=== PATIENT | male | born 1995 | race Caucasian/White ===

== ENCOUNTER 2021-04-21 15:21 | Emergency (ER) | payer OTHER, SELFPAY ==
[2021-04-21 15:25] VITALS: BP 130/76; PULSE 59; RESP 18; TEMP 36.3; O2SAT 98; BMI 21.2
--- NOTE | 2021-04-21 15:41 | ED_ITS ---
HPI - Extremity Injury (Lower) General Chief Complaint: Extremity Injury, Lower Stated Complaint: Knee injury at work Time Seen by Provider: 04/21/21 15:31 Source: patient Mode of arrival: ambulatory Limitations: no limitations History of Present Illness HPI Narrative: 25 yo male with history of chronic low back pain and on/off knee pain presents to the ER from work with ongoing left lateral knee pain for the last 1 week. He works as an [employer] person and has been working extra hours this week and has been on his feet more. He denies known injury or trauma. No swelling. He has pain with ambulation and palpation to the lateral aspect of his knee. No erythema, warmth, swelling or fevers. No calf pain. No SOB or chest pain. He used to wear a knee brace to work but it made his knee swollen. MD complaint: knee injury Onset (ago): unknown Type of Injury: unknown Place: work Severity: moderate Relieving factors: immobilization and rest Exacerbating factors: weight bearing Associated symptoms: able to partially bear weight Other symptoms: none Related Data Previous Rx's Medication Instructions Recorded ibuprofen 600 mg PO Q8H PRN #10 tab 04/21/21 prednisone 40 mg PO DAILY #10 tab 04/21/21 Allergies Allergy/AdvReac Type Severity Reaction Status Date / Time No Known Allergies Allergy Verified 04/21/21 15:24 Review of Systems Review of Systems: Constitutional: No Fever, No Chills Gastrointestinal: No Nausea, No Vomiting Musculoskeletal: + joint pain, No Myalgias Skin: No Skin Lesions, No rash Neuro: No Weakness, No Numbness Heme/Lymph: No Bruising PMFSH Past Medical History Attestation statement: The following information was validated with the patient. Medical History (Updated 04/21/21 @ 15:42 by LASHAY Miranda) No active medical problems Social History Social History Advance Directives: No Advance Directives Information Provided: No Physical Exam Vital Signs: Vital Signs: Last Vital Signs Temp 97.4 F 04/21/21 15:25 Pulse 59 04/21/21 15:25 Resp 18 04/21/21 15:25 BP 130/76 04/21/21 15:25 Pulse Ox 98 04/21/21 15:25 Body Mass Index 21.2 Appearance: Alert. Oriented X3. No acute distress. HEENT: normal inspection CVS: Normal heart rate and rhythm. Pulses normal. Respiratory: No respiratory distress. Skin: Skin warm and dry. Normal skin color. Normal skin turgor. No rashes. Extremities: bilateral knees are normal to inspection. left knee with mild tenderness to the lower lateral aspect in the expected location of the ileotibial insertion site. normal ROM. no palpable effusion. no erythema, warmth or ecchymosis. NV Intact distally. Neuro: Oriented X 3. No motor deficit. No sensory deficit. ambulates with slight limp Course Course Course Narrative: 25 y/o male presenting with left lateral knee pain after excessive walking. No direct trauma to suspect bony injury. No role for x-ray at this time. Exam and clinical presentation are consistent with tendonitis and overuse injury. He was counseled on management and recommended following up with Orthopedics for further management. Patient is stable for discharge with supportive care and outpatient follow up. Patient agrees with plan. Critical Care Time Critical Care Time Critical Care Time: No Discharge Plan Discharge Clinical Impression: Tendonitis Patient Disposition: Home, Self-Care Instructions: Knee Pain (ED), Tendinitis (ED) Additional Instructions: Recommend rest, ice several times per day and compression with SONY wrap. Elevate your knee when possible. Try to stay off of your feet for prolonged time until your symptoms are resolved. Recommend following up with Orthopedics for further evaluation. Prescriptions: New prednisone 20 mg tablet 40 mg PO DAILY Qty: 10 RF: 0 ibuprofen 600 mg tablet 600 mg PO Q8H PRN (Reason: pain) Qty: 10 RF: 0 Referrals: Cortez Hanson MD [Physician] - 1 week (left knee pain, acute on chronic) Stand Alone Forms: Work/School Release
[2021-04-21] MEDS: Ketorolac Tromethamine 30 MG/ML VIAL IM (16:09)
== END 2021-04-21 16:15 | disposition home or self-care (01) ==
PROVIDERS: Emergency Provider Emergency Medicine; PCP Internal Medicine
DX: M76.9 Unspecified enthesopathy, lower limb, excluding foot (principal)
CPT/HCPCS: 96372; 99284; J1885

== ENCOUNTER 2021-05-08 07:31 | Outpatient (REF) | payer OTHER, SELFPAY ==
--- NOTE | ~2021-05-08 | XR_ITS ---
EXAMINATION: XR KNEE, LEFT CLINICAL INFORMATION: Pain COMPARISON: None TECHNIQUE: Standing AP view of both knees and lateral and sunrise view of the left knee of the left knee. FINDINGS: Left knee: Bone alignment is normal. No fracture or dislocation is seen. The joint spaces are normal. There is no joint effusion. Standing AP view of the right knee demonstrates question of mild varus angulation and soft tissue swelling superior to the medial femoral condyle, possibly representing a joint effusion. XR/XR knee LT 3V IMPRESSION: Normal left knee. Question mild varus angulation at the right knee joint and joint effusion.
== END 2021-05-08 07:32 | disposition home or self-care (01) ==
LOC: HO.HOSX 07:31
PROVIDERS: Visit Provider Physician Assistant
DX: S83.92XA Sprain of unspecified site of left knee, initial encounter (principal)
CPT/HCPCS: 73562; 99202